=== PATIENT | female | born 1955 | race Caucasian/White ===

== ENCOUNTER → 2016-10-04 | Outpatient (CLI) | payer OTHER ==
[~2016-10-04] MED LIST: ACET-461 PO; ACHD5005 PO; ASP81CT PO; BACL20TA PO; CALC1CAP5 PO; CEFD300C3 PO; CHOL10003 PO; CYCL10TA9 PO; EST.625T PO; LVT.05T PO; MELO-195 PO; MTP25TSR PO; NAPR220C11 PO; PRD20T PO; PRX10T PO
== END ==
LOC: CARD 13:57
PROVIDERS: ATTEND Physician Assistant
DX: I10 Essential (primary) hypertension (principal); R00.2 Palpitations; I49.3 Ventricular premature depolarization; R09.89 Other specified symptoms and signs involving the circulatory and respiratory systems
CPT/HCPCS: 93306

== ENCOUNTER 2017-03-27 10:47 | Outpatient (RCR) | payer OTHER | END 2017-06-25 | disposition home or self-care (01) | LOC: ONC 10:47 | PROVIDERS: ATTEND Internal Medicine Hematology & Oncology | DX: M81.0 Age-related osteoporosis without current pathological fracture (principal); I10 Essential (primary) hypertension; R00.1 Bradycardia, unspecified; F32.9 Major depressive disorder, single episode, unspecified; E07.9 Disorder of thyroid, unspecified; M51.16 Intervertebral disc disorders with radiculopathy, lumbar region; M48.061 Spinal stenosis, lumbar region without neurogenic claudication; Z79.899 Other long term (current) drug therapy | CPT/HCPCS: 96365 ==

== ENCOUNTER 2018-03-20 09:50 | Outpatient (RCR) | payer OTHER ==
[2018-03-20] MEDS ORDERED: ZOLEDRONATE (NON-FORMULARY) 100 ML IV ONE (10:40)
== END 2018-06-18 | disposition home or self-care (01) ==
LOC: ONC 09:50
PROVIDERS: ATTEND Internal Medicine Hematology & Oncology
DX: M81.0 Age-related osteoporosis without current pathological fracture (principal); I10 Essential (primary) hypertension; R00.1 Bradycardia, unspecified; F32.9 Major depressive disorder, single episode, unspecified; E07.9 Disorder of thyroid, unspecified; M51.16 Intervertebral disc disorders with radiculopathy, lumbar region; M48.061 Spinal stenosis, lumbar region without neurogenic claudication; Z79.899 Other long term (current) drug therapy
CPT/HCPCS: 96365

== ENCOUNTER → 2018-03-20 | Outpatient (CLI) | payer OTHER ==
[2018-03-20 11:14] LABS: BUN/CREATININE RATIO 14; CALCIUM 9.5 MG/DL (8.5-10.1); CARBON DIOXIDE 27 MMOL/L (21-32); CHLORIDE 105 MMOL/L (98-107); GFR ESTIMATED > 60; GLUCOSE 77 MG/DL (70-105); POTASSIUM 4.2 MMOL/L (3.6-5.0); SODIUM 140 MMOL/L (135-145)
== END ==
LOC: LAB 10:16
PROVIDERS: ATTEND Obstetrics & Gynecology
DX: M81.0 Age-related osteoporosis without current pathological fracture (principal)
CPT/HCPCS: 36415; 80048

== ENCOUNTER 2018-10-12 15:25 | Inpatient (IN) | payer OTHER ==
[~2018-10-12] VITALS: Ht 157.5 cm; Wt 59.0 kg
--- NOTE | 2018-10-12 15:31 | NUR ---
PT HERE WITH " ". PT ALERT GCS 15. DR SOLOMON PT SAME TIME. PT STARTED TO C/O ABD PAIN THIS AM ASSOCIATED WITH N/V X 1 THEN DRY HEAVES. DENIES DIARRHEA AND C/O CONSTIPATION. PT ALSO C/O CHEST PAIN RADIATING UP CHEST AND DOWN LEFT ARM THAT SHE SAYS IS DUE TO THE DRY HEAVES. ABD PAIN IS WORSE PAIN RATING 2 CURRENTLY. PT DENIES DYSPNEA AND NO ACUTE SIGHNS OF DYSPNEA NOTED. PT RELATES SHE DRINKS ALCOHOL DAILY. LUNGS CTA BILATERALLY. ABD SOFT NONDISTENDED TENDER TO PALPATION ALL QUADS. TELE APPLIED SHOWS SR 64. PATRICIA SOLOMON PT 2239,
--- NOTE | 2018-10-12 15:31 | NUR ---
PT SAYS LAST ALCOHOL WAS LAST NOC.
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
--- NOTE | 2018-10-12 15:39 | ED Abdominal Pain ---
General Stated Complaint: NAUSEA,CHEST PRESSURE Source of Information: Patient Exam Limitations: No Limitations History of Present Illness Date Seen by Provider: Oct 12, 2018 Time Seen by Provider: 15:37 Initial Comments ER per private vehicle from home with reports of pain all across the lower abdomen. This awakened her from sleep this morning. She has had nausea and vomited twice. No bowel changes no dysuria. She also has some discomfort in the middle of her chest that she describes as a burning sensation. She denies shortness of breath. Timing/Duration: 1-2 Days Severity/Quality: Moderate Location: Epigastric, Suprapubic Radiation: No Radiation Activities at Onset: None Associated Symptoms: Nausea/Vomiting Allergies and Home Medications Allergies Coded Allergies: No Known Drug Allergies (Unverified , 03/26/10) Home Medications Acetaminophen 500 Mg Tablet, 500 MG PO Q4H Prescribed by: ADRIENNE NY on 09/24/13 0841 Aspirin 81 Mg Chew, 81 MG PO DAILY, (Reported) Cefdinir 300 Mg Capsule, 1 EACH PO BID Prescribed by: ADRIENNE NY on 09/24/13 08 Levothyroxine Sodium 50 Mcg Tablet, 1 EACH PO DAILY, (Reported) Naproxen Sodium 220 Mg Capsule, 220 MG PO BID Prescribed by: ADRIENNE NY on 09/24/13 08 Paroxetine Hcl 10 Mg Tablet, 2 TAB PO HS Prescribed by: ADRIENNE NY on 09/24/13 0841 Patient Home Medication List Home Medication List Reviewed: Yes Review of Systems Review of Systems Constitutional: see HPI EENTM: No Symptoms Reported Respiratory: No Symptoms Reported Cardiovascular: No Symptoms Reported Gastrointestinal: See HPI, Abdominal Pain, Nausea, Vomiting Genitourinary: No Symptoms Reported Musculoskeletal: no symptoms reported Skin: no symptoms reported Psychiatric/Neurological: No Symptoms Reported Endocrine: No Symptoms Reported Past Srnamza-Avzkpr-Mwarqq Hx Immunizations Up To Date Date of Influenza Vaccine: Jan 07, 2011 Past Medical History Reproductive Disorders: No Female Reproductive Disorders: Denies Sexually Transmitted Disease: No HIV/AIDS: No Hypothyroidsim Adverse Reaction/Blood Tranf: No Family Medical History Family history: Diabetes mellitus 19 FATHER Physical Exam Vital Signs Vital Signs - First Documented 10/12/18 15:31 Temp 97.3 Pulse 68 Resp 16 B/P (MAP) 136/72 (93) Pulse Ox 99 O2 Delivery Room Air Capillary Refill : Height/Weight/BMI Height: 5'3.00" Weight: 145lbs. oz. 65.632891qe; BMI Method: General Appearance: WD/WN, no apparent distress HEENT: PERRL/EOMI, normal ENT inspection, TMs normal Neck: non-tender, full range of motion Respiratory: no respiratory distress, no accessory muscle use Cardiovascular: regular rate, rhythm, no murmur Gastrointestinal: normal bowel sounds, soft, tenderness Extremities: normal range of motion, non-tender Neurologic/Psychiatric: alert, normal mood/affect, oriented x 3 Skin: normal color, warm/dry Progress/Results/Core Measures Results/Orders Lab Results Laboratory Tests Test 10/12/18 16:01 Range/Units White Blood Count 8.5 4.3-11.0 10^3/uL Red Blood Count 4.59 4.35-5.85 10^6/uL Hemoglobin 14.6 11.5-16.0 G/DL Hematocrit 44 35-52 % Mean Corpuscular Volume 96 80-99 FL Mean Corpuscular Hemoglobin 32 25-34 PG Mean Corpuscular Hemoglobin Concent 33 32-36 G/DL Red Cell Distribution Width 12.4 10.0-14.5 % Platelet Count 203 130-400 10^3/uL Mean Platelet Volume 11.0 H 7.4-10.4 FL Neutrophils (%) (Auto) 83 H 42-75 % Lymphocytes (%) (Auto) 11 L 12-44 % Monocytes (%) (Auto) 5 0-12 % Eosinophils (%) (Auto) 0 0-10 % Basophils (%) (Auto) 0 0-10 % Neutrophils # (Auto) 7.1 1.8-7.8 X 10^3 Lymphocytes # (Auto) 0.9 L 1.0-4.0 X 10^3 Monocytes # (Auto) 0.4 0.0-1.0 X 10^3 Eosinophils # (Auto) 0.0 0.0-0.3 10^3/uL Basophils # (Auto) 0.0 0.0-0.1 10^3/uL Prothrombin Time 12.5 12.2-14.7 SEC INR Comment 0.9 0.8-1.4 Activated Partial Thromboplast Time 25 24-35 SEC Sodium Level 142 135-145 MMOL/L Potassium Level 4.2 3.6-5.0 MMOL/L Chloride Level 105 98-107 MMOL/L Carbon Dioxide Level 26 21-32 MMOL/L Anion Gap 11 5-14 MMOL/L Blood Urea Nitrogen 12 7-18 MG/DL Creatinine 0.82 0.60-1.30 MG/DL Estimat Glomerular Filtration Rate > 60 BUN/Creatinine Ratio 15 Glucose Level 119 H 70-105 MG/DL Calcium Level 9.5 8.5-10.1 MG/DL Corrected Calcium 9.3 8.5-10.1 MG/DL Magnesium Level 2.2 1.8-2.4 MG/DL Total Bilirubin 0.5 0.1-1.0 MG/DL Aspartate Amino Transf (AST/SGOT) 27 5-34 U/L Alanine Aminotransferase (ALT/SGPT) 18 0-55 U/L Alkaline Phosphatase 84 40-136 U/L Myoglobin 34.1 10.0-92.0 NG/ML Troponin I < 0.028 <0.028 NG/ML B-Type Natriuretic Peptide 14.2 <100.0 PG/ML Total Protein 7.1 6.4-8.2 GM/DL Albumin 4.2 3.2-4.5 GM/DL Lipase 26 8-78 U/L Serum Alcohol < 10 <10 MG/DL My Orders Orders - ALEXANDRA BERNSTEIN APRN Cbc With Automated Diff (10/12/18 15:32) Magnesium (10/12/18 15:32) Chest 1 View, Ap/Pa Only (10/12/18 15:32) Ekg Tracing (10/12/18 15:32) Cardiac Profile 1 (10/12/18 15:32) Comprehensive Metabolic Panel (10/12/18 15:32) Myoglobin Serum (10/12/18 15:32) Protime With Inr (10/12/18 15:32) Partial Thromboplastin Time (10/12/18 15:32) O2 (10/12/18 15:32) Monitor-Rhythm Ecg Trace Only (10/12/18 15:32) Lipid Panel (10/13/18 06:00) Ed Iv/Invasive Line Start (10/12/18 15:32) Lipase (10/12/18 15:32) BNP (10/12/18 15:32) Ct Abdomen/Pelvis W (10/12/18 15:36) Antacid Suspension (Mylanta Suspension (10/12/18 15:45) Lidocaine 2% Viscous 15 Ml (Xylocaine Vi (10/12/18 15:45) Ondansetron Injection (Zofran Injectio (10/12/18 15:45) Alcohol (10/12/18 16:01) Promethazine Injection (Phenergan Injec (10/12/18 16:30) Iohexol Injection (Omnipaque 350 Mg/Ml 1 (10/12/18 17:00) Contrast Received (Contrast Received) (10/12/18 17:00) Sodium Chloride Flush (Catheter Flush Sy (10/12/18 17:00) Ns (Ivpb) (Sodium Chloride 0.9% Ivpb Bag (10/12/18 17:00) Fentanyl Injection (Sublimaze Injection (10/12/18 18:00) Chest 1 View, Ap/Pa Only (10/12/18 18:24) Ng Tube Insert & Assessment (10/12/18 18:24) Medications Given in ED Current Medications Medications Dose Ordered Sig/Aissatou Route Start Time Stop Time Status Last Admin Dose Admin Al Hydrox/Mg Hydrox/Simethicone 30 ml ONCE ONCE PO 10/12/18 15:45 10/12/18 15:46 DC 10/12/18 16:09 30 ML Fentanyl Citrate 50 mcg ONCE ONCE IVP 10/12/18 18:00 10/12/18 18:01 DC 10/12/18 17:55 50 MCG Iohexol 100 ml ONCE ONCE IV 10/12/18 17:00 10/12/18 17:01 DC 10/12/18 17:18 74 ML Lidocaine HCl 10 ml ONCE ONCE PO 10/12/18 15:45 10/12/18 15:46 DC 10/12/18 16:09 10 ML Ondansetron HCl 8 mg ONCE ONCE IVP 10/12/18 15:45 10/12/18 15:46 DC 10/12/18 16:06 8 MG Promethazine HCl 12.5 mg ONCE ONCE IVP 10/12/18 16:30 10/12/18 16:31 DC 10/12/18 16:31 12.5 MG Sodium Chloride 10 ml NEEDED PRN IV 10/12/18 17:00 10/12/18 17:18 10 ML Sodium Chloride 100 ml ONCE ONCE IV 10/12/18 17:00 10/12/18 17:01 DC 10/12/18 17:18 80 ML Vital Signs/I&O 10/12/18 10/12/18 15:31 17:25 Temp 97.3 98.8 Pulse 68 88 Resp 16 16 B/P (MAP) 136/72 (93) 123/73 (90) Pulse Ox 99 99 O2 Delivery Room Air Room Air Departure Communication (Admissions) Time/Spoke to Admitting Phy: 18:[address] Bailey who is in service education teacher for Dr. Ny. agrees to admit. Time/Spoke to Consulting Phy: 18:[address] Vega, agrees to consult. Would like nasogastric tube inserted 1825-left nostril/nasopharynx anesthetized with Hurricaine spray. 16 Kyrgyz nasogastric tube inserted. X-ray ordered to confirm placement. Impression Primary Impression: Bowel obstruction Qualified Codes: K56.600 - Partial intestinal obstruction, unspecified as to cause Disposition: ADMITTED INPATIENT Condition: Stable Admissions Decision to Admit Reason: Admit from ER (General) Decision to Admit/Date: Oct 12, 2018 Time/Decision to Admit Time: 18:25 Departure-Patient Inst. Referrals: ADRIENNE NY DO (PCP/Family) Primary Care Physician ALEXANDRA BERNSTEIN APRN Oct 12, 2018 15:39
[2018-10-12] MEDS ORDERED: LIDOCAINE 2% VISCOUS 15 ML UDC PO ONE (15:45)
[2018-10-12] MEDS ORDERED: ONDANSETRON 4 MG/2 ML (SDV) Z0FRAN IVP ONE (15:45)
[2018-10-12] MEDS ORDERED: ANTACID SUSP 30 ML UDC (MYLANTA) PO ONE (15:45)
[2018-10-12 16:06] LABS: BASOPHILS % (AUTO) 0 % (0-10); EOSINOPHILS % (AUTO) 0 % (0-10); HEMATOCRIT 44 % (35-52); HEMOGLOBIN 14.6 G/DL (11.5-16.0); LYMPHOCYTES # (AUTO) 0.9 X 10^3 (1.0-4.0); LYMPHOCYTES % (AUTO) 11 % (12-44); MEAN CORPUSCULAR HEMOGLOBIN 32 PG (25-34); MEAN CORPUSCULAR HGB CONC 33 G/DL (32-36); MEAN CORPUSCULAR VOLUME 96 FL (80-99); MONOCYTES # (AUTO) 0.4 X 10^3 (0.0-1.0); MONOCYTES % (AUTO) 5 % (0-12); NEUTROPHILS # (AUTO) 7.1 X 10^3 (1.8-7.8); NEUTROPHILS % (AUTO) 83 % (42-75); PLATELET COUNT 203 10^3/uL (130-400); RED CELL DISTRIBUTION WIDTH 12.4 % (10.0-14.5); WHITE BLOOD COUNT 8.5 10^3/uL (4.3-11.0)
[2018-10-12 16:22] LABS: INR 0.9 (0.8-1.4); PROTHROMBIN TIME PATIENT 12.5 SEC (12.2-14.7)
[2018-10-12] MEDS ORDERED: PROMETHAZINE INJ 25 MG/ML (PHENERGAN) AMP IVP ONE ×2 (16:30→19:15)
[2018-10-12 16:31] LABS: ALANINE AMINOTRANSFERASE 18 U/L (0-55); ALBUMIN 4.2 GM/DL (3.2-4.5); ALKALINE PHOSPHATASE 84 U/L (40-136); BILIRUBIN,TOTAL 0.5 MG/DL (0.1-1.0); BUN/CREATININE RATIO 15; CALCIUM 9.5 MG/DL (8.5-10.1); CARBON DIOXIDE 26 MMOL/L (21-32); CHLORIDE 105 MMOL/L (98-107); CREATININE SERUM 0.82 MG/DL (0.60-1.30); GFR ESTIMATED > 60; GLUCOSE 119 MG/DL (70-105); LIPASE 26 U/L (8-78); MAGNESIUM 2.2 MG/DL (1.8-2.4); POTASSIUM 4.2 MMOL/L (3.6-5.0); SODIUM 142 MMOL/L (135-145); TOTAL PROTEIN 7.1 GM/DL (6.4-8.2)
--- NOTE | 2018-10-12 16:33 | NUR ---
PT WITH N/V X 1 IN ER.
[2018-10-12] MEDS ORDERED: HOLD METFORMIN - RECEIVED CONTRAST 20 ML VIAL IV SCH (17:00)
[2018-10-12] MEDS ORDERED: IOHEXOL 350 MG/ML 100 ML (OMNIPAQUE 350) VIAL IV ONE (17:00)
[2018-10-12] MEDS ORDERED: NS 100 ML (IVPB) BAG IV ONE (17:00)
[2018-10-12] MEDS ORDERED: CATHETER FLUSH 10 ML SYR IV PRN (17:00)
--- NOTE | 2018-10-12 17:14 | Diagnostic Imaging Report ---
INDICATION: Anterior chest wall pain. FINDINGS: Frontal view of the chest demonstrates the lungs to be clear. The heart, mediastinum, pulmonary vascularity, and the visualized bony thorax are normal. IMPRESSION: Normal chest. Dictated by: Dictated on workstation # [id number]
--- NOTE | 2018-10-12 17:20 | NUR ---
PT BACK FROM CT. REMAINS IN THE ROOM, PT REMAINS ALERT GCS 15. PT STILL C/O CHEST AND ABD PAIN AND ABD PAIN WORSE. PAIN RATING 3. PT RELATES LESS NAUSEA BUT IT CONTINUES. PT HAS VOMITED 3 MORE TIMES PT AND SAYS. HUSBAMD SAYS WHITE AND PT SAYS WITH LITLE YELLOW IN IT. DENIES DYSPNEA AND NO ACUTE SIGHNS OF DYSPNEA NOTED. TELE SHOWS SR 86.
[2018-10-12 17:25] VITALS: BP 123/73
[2018-10-12] MEDS ORDERED: fentaNYL INJECTION 100 MCG/2 ML AMP IVP ONE (18:00)
--- NOTE | 2018-10-12 18:11 | Diagnostic Imaging Report ---
INDICATION: Lower abdominal pain with nausea, vomiting, chills and cramping. Previous gastric sleeve. COMPARISON STUDY: There are no pertinent studies. FINDINGS: The lung bases are clear. The gallbladder is absent. Along the surface of the liver adjacent to the falciform ligament there is hypodensity in the liver which is probably a focal area of fatty metamorphosis. Calcifications are present consistent with calcified granulomas. Postoperative changes are present in the stomach without inflammatory changes. The pancreas, adrenal glands and spleen appear normal. Urinary bladder is normal. The stomach is markedly distended with an air-fluid level. Possible outlet obstruction. IMPRESSION: The stomach is distended with an air-fluid level. Findings are consistent with an outlet obstruction. Dictated by: Dictated on workstation # [id number]
--- NOTE | 2018-10-12 18:42 | Diagnostic Imaging Report ---
INDICATION: Nasogastric tube placement. COMPARISON STUDY: Chest from October 12. FINDINGS: Frontal view of the chest demonstrates the lungs to be clear. The heart, mediastinum, pulmonary vascularity, and visualized bony thorax are normal. Nasogastric tube is in the stomach. IMPRESSION: 1. Normal chest. 2. The nasogastric tube is in good position. Dictated by: Dictated on workstation # [id number]
--- NOTE | 2018-10-12 19:10 | NUR ---
PT REMAINS ALERT GCS 15. REMAINS IN THE ROOM. PT DENIES CHEST PAIN BUT STILL C/O ABD PAIN. PT STILL C/O NAUSEA AND ANOTHER NURSE JUST GIVING MORE PHENERGREN NOW. PT HAS NGT LEFT NARAH. JUST SLIGHT BLOOD AND PHLEMB IN SX TUBING ONLY. DENIES DYSPNEA AND NO ACUTE SIGHNS OF DYSPNEA NOTED. BP MACHINE IS 126/68 AUSC HR 88 REG AUSC RESP 16 NORMAL RECHECK TEMP 99.1 P OX R/A IS 98. TELE SHOWS SR 86.
--- NOTE | 2018-10-12 19:26 | NUR ---
I JUST CALLED REPORT TO ADMIT NURSE ARIADNA. SOMEONE WILL TAKE PT TO ADMIT ROOM [facility].
--- NOTE | 2018-10-12 19:34 | NUR ---
I AM TAKING PT TO ADMIT ROOM.
--- NOTE | 2018-10-12 19:45 | NUR ---
LAZ HAGEN admitted to room 431-1, with an admitting diagnosis of gastric bowel obstruction, on 10/12/18 from ER via bed, accompanied by er staff. LAZ HAGEN introduced to surroundings, call light, bed controls, phone, TV, temperature control, lights, meal times, smoking policy, visitor policy, side rail policy, bathrooms and showers. Patient Rights given to patient in the handbook. LAZ HAGEN verbalizes understanding that [facility] is not responsible for the loss or damage to any personal effects or valuables that are kept in the patients possession during their hospitalization.
[2018-10-12 19:49] VITALS: BP 118/74
--- OUTSIDE RECORDS SUMMARY | 2018-10-12 20:08 | XMS REPORT | Continuity of Care Document ---
Author Organization Unknown Address Unknown Allergies Active Description Code Type Severity Reaction Onset Reported/Identified Relationship to Patient Clinical Status Yes No Known Drug Allergies [id number] Drug Allergy Unknown N/A 03/26/2010 Medications There is no data. Problems Date Dx Coded Attending Type Code Diagnosis Diagnosed By 03/26/2010 Ot 850.5 03/26/2010 Ot 923.00 03/26/2010 Ot 924.11 03/26/2010 Ot 959.01 03/26/2010 Ot E000.8 03/26/2010 Ot E849.6 03/26/2010 Ot E880.9 03/26/2010 Ot V06.1 08/29/2010 Ot V16.0 08/29/2010 Ot V76.51 04/13/2011 Ot 244.9 HYPOTHYROIDISM NOS 04/13/2011 Ot 414.01 CORONARY ATHEROSCLEROSIS OF [place] CORON 04/13/2011 Ot 427.69 PREMATURE BEATS NEC [...] DELIRIUM DUE TO CONDITIONS CLASSIFIED EL 09/24/2013 EVITANDALEX AHMADI DOQUELINE S Ot 311 DEPRESSIVE DISORDER [...] Ot 722.10 LUMBAR DISC DISPLACEMENT 11/13/2013 ADRIENNE YN DO Ot V57.1 PHYSICAL THERAPY NEC 02/04/2015 [...] 578.1 BLOOD IN STOOL 10/04/2016 JUDE MICHAEL BRASS MOLDER HELPER Ot 722.52 LUMB/LUMBOSAC DISC DEGEN 10/04/2016 BROOK CARLOS MD Ot 722.52 LUMB/LUMBOSAC DISC DEGEN 10/04/2016 BROOK CARLOS MD Ot 724.6 DISORDERS OF SACRUM 10/04/2016 BROOK CARLOS MD Ot V58.69 OTH MED,LT,CURRENT USE 10/05/2016 SETH FIHSER Ot I10 ESSENTIAL (PRIMARY) HYPERTENSION 10/05/2016 SETH [...] 04/26/2017 JAMES, BOBAN N Ot Z79.899 OTHER JAIL (CURRENT) DRUG THERAPY 05/10/2017 JAMES, BOBAN N [...] 05/10/2017 JAMES, BOBAN N Ot Z79.899 OTHER SAMPLE GRADER (CURRENT) DRUG THERAPY 05/16/2017 JAMES, BOBAN N [...] 05/16/2017 JAMES, BOBAN N Ot Z79.899 OTHER JAIL (CURRENT) DRUG THERAPY 06/25/2017 JAMESADALBERTO N Ot [...] 06/25/2017 JAMES, BOBAN N Ot Z79.899 OTHER SAMPLE GRADER (CURRENT) DRUG THERAPY 07/30/2017 JAMES BOBMANINDER N [...] 07/30/2017 JAMES, ADALBERTO N Ot Z79.899 OTHER SAMPLE GRADER (CURRENT) DRUG THERAPY 03/04/2018 JUDE MICHAEL Ot [...] 06/18/2018 JAMES, BOBAN N Ot Z79.899 OTHER SAMPLE GRADER (CURRENT) DRUG THERAPY 06/19/2018 JAMES, BOBAN N [...] 06/19/2018 JAMES, BOBAN N Ot Z79.899 OTHER SAMPLE GRADER (CURRENT) DRUG THERAPY Procedures There is no [...] Status Pt. Type Provider Facility Loc./Unit Complaint [id number] 06/19/2018 00:10:00 06/19/2018 23:59:59 CLS Preadmit ADALBERTO RAMIREZ Via [facility] ONC [id number] 03/20/2018 09:50:00 06/18/2018 00:01:00 DIS Outpatient ADALBERTO RAMIREZ [facility] ONC [id number] 03/20/2018 10:16:00 03/20/2018 23:59:59 CLS Outpatient SULTANA DUEÑAS MD [facility] LAB [id number] 03/27/2017 10:47:00 06/25/2017 00:01:00 DIS Outpatient ADALBERTO RAMIREZ [facility] ONC [id number] 10/04/2016 13:57:00 10/04/2016 23:59:59 CLS Outpatient SETH FISHER [facility] CARD R00.1 BRADYCARDIA [id number] 12/01/2013 12:35:00 12/01/2013 23:59:59 CLS Outpatient BROOK CARLOS MD [facility] CARD DDD [id number] 10/30/2013 13:08:00 11/13/2013 14:47:00 DIS Outpatient ADRIENNE [place] DO Via [facility] REHAB LUMBAR DISC DISPLACEMENT [id number] 09/21/2013 02:40:00 09/24/2013 11:49:00 DIS Inpatient ADRIENNE [place] DO Via [facility] 4TH MEDICATION SIDE EFFECT;VOLUME DEPLETION [id number] 09/16/2013 14:48:00 09/16/2013 23:59:59 CLS Outpatient JUDE MICHAEL [facility] RAD LBP [id number] 11/07/2011 17:04:00 Document Registration [id number] 06/08/2011 21:10:00 Document Registration [id number] 04/13/2011 05:54:00 Document Registration [id number] 04/12/2011 15:09:00 Document Registration [id number] 04/12/2011 10:09:00 Document Registration [id number] 04/07/2011 08:12:00 Document Registration [id number] 08/30/2010 07:41:00 Document Registration [id number] 08/29/2010 08:16:00 Document Registration [id number] 03/26/2010 12:29:00 Document Registration [id number] 02/17/2010 10:18:00 Document Registration [id number] 02/15/2010 11:25:00 Document Registration [id number] 02/09/2009 08:28:00 Document Registration 1950 03/24/2018 06:17:56 03/24/2018 23:59:59 CLS Outpatient Adrienne Ny
--- NOTE | 2018-10-12 20:20 | NUR ---
Dr. Vega here to see patient and .
[2018-10-12] MEDS ORDERED: ONDANSETRON 4 MG/2 ML (SDV) Z0FRAN IV PRN (20:30)
[2018-10-12] MEDS ORDERED: PROMETHAZINE INJ 25 MG/ML (PHENERGAN) AMP IV PRN (20:30)
[2018-10-12] MEDS: LACTATED RINGERS 1,000 ML IV SCH (20:33)
--- NOTE | 2018-10-12 21:05 | Consultation (Surgery) ---
History of Present Illness History of Present Illness Patient Consulted On(ezequiel/time) 10/12/18 20:58 Time Seen by Provider: 19:41 History of Present Illness Surgery asked to consult regarding abdominal pain and ??Gastric Outlet Obstruction HPI per ED: ER per private vehicle from home with reports of pain all across the lower abdomen. This awakened her from sleep this morning. She has had nausea and vomited twice. No bowel changes no dysuria. She also has some discomfort in the middle of her chest that she describes as a burning sensation. She denies shortness of breath. Timing/Duration: 1-2 Days Severity/Quality: Moderate Location: Epigastric, Suprapubic Radiation: No Radiation Activities at Onset: None Associated Symptoms: Nausea/Vomiting When I spoke to pt on the floor tonight she rated the pain as 8 out of 10, dull constant pain made worse by movements. Pt has never had anything like this before and she and her are wondering if it is due to the 2 pieces of deep dish pizza and sandwich she had. They are worried because she was told to avoid to much bread. Her last surgery was the Gastric Sleeve 6 years ago (intra-abdominal), she did have Panniculectomy becau se she lost over 100lbs. Pt is still nauseous now and has NGT in place. She thinks her belly is distended more than normal. Allergies and Home Medications Allergies Coded Allergies: No Known Drug Allergies (Unverified , 03/26/10) Home Medications Acetaminophen 500 Mg Tablet, 500 MG PO Q4H Prescribed by: ADRIENNE BURGER on 09/24/13 08 Aspirin 81 Mg Chew, 81 MG PO DAILY, (Reported) Cefdinir 300 Mg Capsule, 1 EACH PO BID Prescribed by: ADRIENNE BURGER on 09/24/13 08 Levothyroxine Sodium 50 Mcg Tablet, 1 EACH PO DAILY, (Reported) Naproxen Sodium 220 Mg Capsule, 220 MG PO BID Prescribed by: ADRIENNE BURGER on 09/24/13 08 Paroxetine Hcl 10 Mg Tablet, 2 TAB PO HS Prescribed by: ADRIENNE BURGER on 09/24/13 08 Patient Home Medication List Home Medication List Reviewed: Yes Past Kytovqr-Qawdae-Iufdot Hx Patient Social History Alcohol Use: Regular Use Recreational Drug Use: No Smoking Status: Never a Smoker Recent Foreign Travel: No Contact w/Someone Who Travel: No Recent Infectious Disease Expo: No Immunizations Up To Date Date of Influenza Vaccine: Jan 07, 2011 Seasonal Allergies Seasonal Allergies: Yes Surgeries History of Surgeries: Yes (sleeve gastrectomy) Surgeries: Gallbladder, Hysterectomy Respiratory History of Respiratory Disorde: No Cardiovascular History of Cardiac Disorders: Yes (RAPID HR; HEART CATH - NO INTERVENTIONS) Neurological History of Neurological Disord: No Reproductive System Hx Reproductive Disorders: No Sexually Transmitted Disease: No HIV/AIDS: No Female Reproductive Disorders: Denies Genitourinary History of Genitourinary Disor: No Gastrointestinal History of Gastrointestinal Di: Yes (GASTRIC SLEEVE APPROX 1 YEAR AGO) Musculoskeletal History of Musculoskeletal Dis: No Endocrine History of Endocrine Disorders: Yes Endocrine Disorders: Hypothyroidsim HEENT History of HEENT Disorders: No Loss of Vision: Denies Hearing Impairment: Denies Cancer History of Cancer: No Psychosocial History of Psychiatric Problem: Yes Behavioral Health Disorders: Depression Integumentary History of Skin or Integumenta: No Blood Transfusions History of Blood Disorders: No Adverse Reaction to a Blood Tr: No Family Medical History Significant Family History: CAD Over 55 Years Old (father), Diabetes Family Medial History: Family history: Diabetes mellitus 19 FATHER Review of Systems-General Constitutional: No chills, No diaphoresis; fever, malaise EENTM: No blurred vision, No double vision, No mouth pain, No mouth swelling, No epistaxis Respiratory: No cough, No dyspnea on exertion, No short of breath Cardiovascular: No chest pain, No edema, No palpitations Gastrointestinal: abdominal pain, constipation; No jaundice; nausea, vomiting Genitourinary: No dysuria, No frequency, No hematuria : No Musculoskeletal: joint pain, joint swelling, muscle pain, muscle stiffness Skin: No change in color, No change in hair/nails, No dryness Psychiatric/Neurological: Denies Anxiety; Depressed; Denies Seizure, Denies Tremors Other pt denies any hx of abnormal bleeding or bruising Physical Exam-General Problems Physical Exam Vital Signs Vital Signs - First Documented 10/12/18 15:31 Temp 97.3 Pulse 68 Resp 16 B/P (MAP) 136/72 (93) Pulse Ox 99 O2 Delivery Room Air Capillary Refill : Less Than 3 Seconds General Appearance: WD/WN, mild distress Eyes: Bilateral Eye PERRL, Bilateral Eye EOMI HEENT: pharynx normal; No scleral icterus (R), No scleral icterus (L); other (NGT in place) Neck: non-tender, full range of motion, supple, normal inspection Respiratory: chest non-tender, lungs clear, normal breath sounds, no respiratory distress, no accessory muscle use Cardiovascular: regular rate, rhythm, no murmur Gastrointestinal: abnormal bowel sounds, distended, guarding (voluntary), rebound; No hernia; other (fullness and firmness LUQ and LLQ) Back: no CVA tenderness, no vertebral tenderness Extremities: normal range of motion, non-tender, normal inspection, no pedal edema, no calf tenderness Neurologic/Psychiatric: performance test architect II-XII nml as tested, no motor/sensory deficits, alert, oriented x 3, depressed affect Skin: normal color, warm/dry Lymphatic: no adenopathy (neck, axilla or groin) Data Review Labs Laboratory Tests 10/12/18 16:01: White Blood Count 8.5, Red Blood Count 4.59, Hemoglobin 14.6, Hematocrit 44, Mean Corpuscular Volume 96, Mean Corpuscular Hemoglobin 32, Mean Corpuscular Hemoglobin Concent 33, Red Cell Distribution Width 12.4, Platelet Count 203, Mean Platelet Volume 11.0H, Neutrophils (%) (Auto) 83H, Lymphocytes (%) (Auto) 11L, Monocytes (%) (Auto) 5, Eosinophils (%) (Auto) 0, Basophils (%) (Auto) 0, Neutrophils # (Auto) 7.1, Lymphocytes # (Auto) 0.9L, Monocytes # (Auto) 0.4, Eosinophils # (Auto) 0.0, Basophils # (Auto) 0.0, Prothrombin Time 12.5, INR Comment 0.9, Activated Partial Thromboplast Time 25, Sodium Level 142, Potassium Level 4.2, Chloride Level 105, Carbon Dioxide Level 26, Anion Gap 11, Blood Urea Nitrogen 12, Creatinine 0.82, Estimat Glomerular Filtration Rate > 60, BUN/Creatinine Ratio 15, Glucose Level 119H, Calcium Level 9.5, Corrected Calcium 9.3, Magnesium Level 2.2, Total Bilirubin 0.5, Aspartate Amino Transf (AST/SGOT) 27, Alanine Aminotransferase (ALT/SGPT) 18, Alkaline Phosphatase 84, Myoglobin 34.1, Troponin I < 0.028, B-Type Natriuretic Peptide 14.2, Total Protein 7.1, Albumin 4.2, Lipase 26, Serum Alcohol < 10 Assessment/Plan Assessment/Plan Assessment/Plan Left sided Abdominal pain Small Bowel Obstruction - possible complete Hypothyroidism I reviewed the CT films myself and do not believe this is a Gastric Outlet Obstruction; I called the radiologist and went over films, he agreed looking at it again that it is a segment of small bowel. It may be an internal hernia; looks almost like a closed loop obstruction. My concern is that the intestine measured at least 11.7 cm at its widest point, anything over 10cm runs the risk of spontaneous perforation. In addition with the small bowel that distended it is almost certain that the blood supply is being compromised if not completely cut off. I had a long discussion with the pt and her ; going over options of doing surgery tonight, waiting to do surgery tomorrow or not doing surgery at all. I think the safest thing is to do it tonight; they both agreed, in fact is very concerned about peritonitis and rupture and does not want to wait. I went over risks and complications; not limited to pain, bleeding, infection, scar, damage to bowel and need for further procedure. The plan is to do Exploratory laparotomy with posssible small bowel resection. All questions answered to their satisfaction. MAYTE LOPEZ DO Oct 12, 2018 21:05
[2018-10-12] MEDS ORDERED: SEVOFLURANE (ULTANE) 15 ML INHAL SOLN ONE (21:26)
[2018-10-12] MEDS ORDERED: ROCURONIUM 10 MG/ML 5 ML SYRINGE IV ONE (21:26)
[2018-10-12] MEDS ORDERED: SUCCINYLCHOLINE INJ 100 MG/5 ML SYR ONE (21:26)
[2018-10-12] MEDS ORDERED: ONDANSETRON 4 MG/2 ML (SDV) Z0FRAN ONE (21:26)
[2018-10-12] MEDS ORDERED: MIDAZOLAM 2 MG/2 ML (VERSED) VIAL ONE (21:26)
[2018-10-12] MEDS ORDERED: fentaNYL INJECTION 100 MCG/2 ML AMP ONE (21:26)
[2018-10-12] MEDS ORDERED: proPOfol 200 MG/20 ML (DIPRIVAN) VIAL IV ONE (21:26)
[2018-10-12] MEDS ORDERED: DEXAMETHASONE 10 MG/ML (DECADRON) 1 ML VIAL ONE (21:26)
[2018-10-12] MEDS ORDERED: metroNIDAZOLE 500MG/100ML IVPB 100 ML ONE (21:37)
[2018-10-12] MEDS ORDERED: ceFAZolin 2 GM/50 ML NS 50 ML IV ONE (21:45)
--- NOTE | 2018-10-12 21:49 | NUR ---
to OR via bed accompanied by surgical processor's x 2
[2018-10-12] MEDS ORDERED: ceFAZolin 2 GM/50 ML NS 50 ML ONE (21:53)
[2018-10-12] MEDS ORDERED: HYDROmorphone 2 MG/ML VIAL (DILAUDID) ONE ×2 (21:56→22:18)
[2018-10-12] MEDS ORDERED: morphine INJ 10 MG/ML 1ML (SYR OR VIAL) ONE (21:56)
[2018-10-12] MEDS ORDERED: MEPERIDINE (DEMEROL) INJ 50 MG/ML ONE (21:56)
[2018-10-12] MEDS: metroNIDAZOLE 500MG/100ML IVPB 100 ML IV SCH (22:10)
[2018-10-12] MEDS ORDERED: PHENYLEPHRINE 100 MCG/ML 10 ML (ANESTHESIA) SYR ONE (22:12)
[2018-10-12] MEDS ORDERED: ROPIVACAINE 5MG/ML 30ML VIAL ONE (22:15)
[2018-10-12] MEDS ORDERED: NEOSTIGMINE 3 MG/3 ML VIAL ONE (22:23)
[2018-10-12] MEDS ORDERED: GLYCOPYRROLATE 0.2 MG/ML (ROBINUL) 2 ML VIAL ONE (22:23)
--- NOTE | 2018-10-12 23:06 | Progress Note-Post Operative ---
Post-Operative Progess Note Surgeon (s)/Construction Job Titles (s) Surgeon MAYTE LOPEZ DO Construction Job Titles: none Pre-Operative Diagnosis Small bowel Obstruction Post-Operative Diagnosis Cecal Volvulus Ischemic bowel Procedure & Operative Findings Date of Procedure 10/12/18 Procedure Performed/Findings Right Hemicolectomy Anesthesia Type GET Estimated Blood Loss Estimated blood loss (mL): less than 20ml Specimens/Packing Specimens Removed right colon including cecum,portion of ascending colon and appendix MAYTE LOPEZ DO Oct 12, 2018 23:06
[2018-10-12 23:23] VITALS: BP 120/77
[2018-10-12 23:30] VITALS: BP 104/45
[2018-10-12] MEDS ORDERED: ONDANSETRON 4 MG/2 ML (SDV) Z0FRAN IVP PRN (23:30)
[2018-10-12] MEDS ORDERED: HYDROmorphone 2 MG/ML VIAL (DILAUDID) IV ONE (23:30)
[2018-10-12 23:40] VITALS: BP 112/64
--- NOTE | 2018-10-12 23:40 | Anesthesia-Peripheral Nerve Bl ---
Procedure Start/Stop Time Date of Procedure: Oct 12, 2018 Start Time: 23:00 Referring Physician: Gary Preprocedural Diagnosis: Bowel Obstruction/Volvulus Brief History Block consent obtained pre operative. Block requested by surgeon for post op pain control. U/S guided B/L TAP block completed under sterile technique. Muscle layers visualized easily. Good hydrodissection with local. 20 cc Ropivacaine 0.25cc injected easily B/L. Negative aspiration or heme. VSS in PACU without complaints of pain. ASA 2E Stop Time: 23:05 Postprocedural Diagnosis: Bowel Obstruction/Volvulus Peripheral Nerve Block Peripheral Nerve Blockade Risk/Benefits/Alternatives discussed, including IV injection leading to complications or seizures, nerve irritation or damage, pneumothorax, total spinal anesthesia, injection, and/or bleeding. Specifically requested for management of pain by: Patient Condition Vital Signs Vital Signs Date Time Temp Pulse Resp B/P (MAP) Pulse Ox O2 Delivery O2 Flow Rate FiO2 10/12/18 19:49 98.0 71 18 118/74 (89) 100 Room Air Narrative Injection was made incrementally with constant monitoring. Events Patient Conditon Post Peripheral Nerve Block Post Peripheral Nerve Block Vital Signs: Blood Pressure: Systolic Diastolic Heart Rate Blood Pressure Systolic: 118 Blood Pressure Diastolic: 74 Pulse Rate (adult): 71 DIANA MCGEE CRNA Oct 12, 2018 23:40
[2018-10-12 23:50] VITALS: BP 102/64
[2018-10-13] VITALS (8 sets, daily range): BP systolic 88–117; BP diastolic 51–70
--- NOTE | 2018-10-13 00:20 | NUR ---
To room 431 via bed from [facility] accompanied by Nut Steamer (Sandra Vance RN) and SORAYA Craven. Awake and alert. O2 at 2L NC. Midline incision dressing d/i. at bedside. Will continue to monitor.
[2018-10-13] MEDS: fentaNYL INJECTION 100 MCG/2 ML AMP IV PRN ×2 (01:20→16:30)
[2018-10-13] MEDS ORDERED: PARO-49 PO (01:30)
[2018-10-13] MEDS ORDERED: LEVO50TA6 PO (01:32)
[2018-10-13] MEDS ORDERED: DOCU-143 PO (01:54)
[2018-10-13] MEDS ORDERED: VIT1TABL26 PO (01:54)
[2018-10-13] MEDS ORDERED: MULT1CAP54 PO (02:08)
--- NOTE | 2018-10-13 02:25 | OPERATIVE REPORT ---
DATE OF SERVICE: 10/12/2018 PREOPERATIVE DIAGNOSIS: Small bowel obstruction. POSTOPERATIVE DIAGNOSES: 1. Cecal volvulus. 2. Ischemic bowel. PROCEDURE: Right hemicolectomy. SURGEON: Andrea Vega DO. ORCHARDIST: None. ANESTHESIA: General endotracheal tube. SPECIMEN: Cecum, portion of ascending colon and portion of terminal ileum as well as appendix. BLOOD LOSS: Less than 20 mL. FLUIDS: Per anesthesia. POSTOPERATIVE CONDITION: Stable. INDICATION FOR PROCEDURE: The patient is a 62-year-old female, who had some abdominal pain and distention started today associated with nausea, vomiting and had a CAT scan, which showed what I thought was small bowel obstruction. Radiologist initially read as gastric outlet obstruction, but then changed his diagnoses after I talked to him. FINDINGS: The patient actually had a cecal volvulus with ischemic bowel. PROCEDURE NOTE: After informed consent was obtained, the patient was brought to the operating room and placed on the table in supine position, sterilely prepped and draped in normal fashion. A midline incision was made with a #10 blade, carried down through the skin into the subcutaneous tissue, then deepened down to subcutaneous tissue with Bovie electrocautery down to the fascia. Fascia incised with Bovie electrocautery, then bluntly entered the abdomen and then increased the incision with Bovie electrocautery holding my finger under the fascia to protect the bowel going superiorly and inferiorly. I made about a 3 or 4 inch incision, but I could not get into the abdomen and had to make it another 2 or 3 inches longer, went superiorly with the Bovie electrocautery along the skin and then the fascia. Once this was opened, then could see omentum stuck in the left side of the abdomen, moved this, that was also stuck on the umbilicus, cut this off with Bovie electrocautery and then able to move this out of the way and saw ischemic bowel. Able to grasp this ischemic bowel and pulled it through the midline and out, once delivered up, I realized it was cecal, so she had a cecal volvulus with ischemic bowel. Went above the cecum and the ascending colon, found an area of good colon. I made a small defect in the mesentery with a Bovie electrocautery and then used a ZOLTAN 55 across the colon, clamped and then held for 30 seconds, then fired in thereby transecting it and then went just above the terminal ileum. Again, made a defect in the mesentery with the Bovie electrocautery and then used another ZOLTAN 55 reload and clamped, held for 30 seconds and then fired thereby transecting and then using LigaSure coming across the mesentery between the small intestine and the large intestine in a stepwise fashion clamping, coagulating and transecting and in this fashion completely removing this part. Then placed 2 blue towels, tried to milk any fecal material in the bowel out and put a bowel clamp on the large intestine and then grasped the small intestine. Cut off a corner of the small intestine and then made an incision over that with scissors and then made an incision right along the tinea with a Bovie electrocautery. A hole went into the large intestine, looked this was either ascending or transverse colon and then placed a ZOLTAN 55 on either side, clamped it together and then held for 30 seconds and then fired creating the [id number] functional end-to-end anastomosis. Then, I used a TA 60 across the enterocolotomy to close this, clamped and held for 30 seconds and fired and held for 20 seconds and then cut this distal portion off and passed this off the table. There was a little bit of bleeding from the edges, this was controlled with 3-0 Vicryl pop-offs, also used 3-0 Vicryl pop-off of the crotch of the anastomosis to hold it together and then closed the mesenteric defect with a 3-0 Vicryl running suture. Then dropped all this back into the abdomen and copiously irrigated with 2 or 3 liters of warm normal saline, suctioned this out. There was no bleeding. She did have a pretty floppy transverse colon, but able to push this back in and then elected to close the incision. Closed the midline incision with a #1 double stranded PDS suture running from the superior portion to inferior portion tying to itself. Irrigated the midline incision and then closed the skin with ruthie. The area was cleaned and dried, dressing placed and the patient then transferred to recovery room in stable condition. Sponge, instrument and needle count correct at the end of the case. Job ID: [id number] DocumentID: [id number] Dictated Date: 10/12/2018 23:24:59 Teacher Specialist Date: 10/13/2018 01:20:19 Dictated By: ANDREA VEGA DO
[2018-10-13] MEDS: LACTATED RINGERS 1,000 ML IV SCH ×4 (03:15→20:03)
[2018-10-13] MEDS ORDERED: NS (IVPB) 50 ML ONE (05:21)
[2018-10-13] MEDS ORDERED: ceFAZolin INJECTION 2,000 MG ONE (05:21)
[2018-10-13 05:47] LABS: BASOPHILS % (AUTO) 0 % (0-10); EOSINOPHILS % (AUTO) 0 % (0-10); HEMATOCRIT 41 % (35-52); HEMOGLOBIN 13.4 G/DL (11.5-16.0); LYMPHOCYTES # (AUTO) 0.6 X 10^3 (1.0-4.0); LYMPHOCYTES % (AUTO) 4 % (12-44); MEAN CORPUSCULAR HEMOGLOBIN 32 PG (25-34); MEAN CORPUSCULAR HGB CONC 33 G/DL (32-36); MEAN CORPUSCULAR VOLUME 97 FL (80-99); MEAN PLATELET VOLUME 10.9 FL (7.4-10.4); MONOCYTES # (AUTO) 0.6 X 10^3 (0.0-1.0); MONOCYTES % (AUTO) 5 % (0-12); NEUTROPHILS # (AUTO) 11.5 X 10^3 (1.8-7.8); NEUTROPHILS % (AUTO) 91 % (42-75); PLATELET COUNT 174 10^3/uL (130-400); RED CELL DISTRIBUTION WIDTH 12.4 % (10.0-14.5); WHITE BLOOD COUNT 12.7 10^3/uL (4.3-11.0)
[2018-10-13 06:09] LABS: ALANINE AMINOTRANSFERASE 17 U/L (0-55); ALBUMIN 3.7 GM/DL (3.2-4.5); ALKALINE PHOSPHATASE 72 U/L (40-136); BILIRUBIN,TOTAL 0.4 MG/DL (0.1-1.0); BUN/CREATININE RATIO 13; CALCIUM 8.6 MG/DL (8.5-10.1); CARBON DIOXIDE 25 MMOL/L (21-32); CHLORIDE 107 MMOL/L (98-107); CHOLESTEROL 167 MG/DL (< 200); CREATININE SERUM 0.76 MG/DL (0.60-1.30); GFR ESTIMATED > 60; GLUCOSE 149 MG/DL (70-105); HDL CHOLESTEROL 92 MG/DL (40-60); POTASSIUM 4.4 MMOL/L (3.6-5.0); SODIUM 141 MMOL/L (135-145); TOTAL PROTEIN 6.1 GM/DL (6.4-8.2); TRIGLYCERIDES 38 MG/DL (<150); VLDL CHOLESTEROL 8 MG/DL (5-40)
[2018-10-13] MEDS: ceFAZolin 2 GM/50 ML NS 50 ML IV SCH ×2 (06:16→14:30)
[2018-10-13 07:20] LABS: BAND NEUTROPHILS 13 %; LYMPHOCYTES % (MANUAL) 3 %; MONOCYTES % (MANUAL) 4 %; NEUTROPHILS % (MANUAL) 80 %; RBC MORPH NORMAL
[2018-10-13] MEDS: PANTOPRAZOLE 40 MG (PROTONIX) VIAL IV SCH (08:04)
--- NOTE | 2018-10-13 08:32 | Anesthesia-General Post-Op ---
General Patient Condition Mental Status/LOC: Same as Preop Cardiovascular: Satisfactory Nausea/Vomiting: Absent Respiratory: Satisfactory Pain: Controlled Complications: Absent Post Op Complications Complications None Follow Up Care/Instructions Patient Instructions None needed. Anesthesia/Patient Condition Patient Condition Patient is doing well, no complaints, stable vital signs, no apparent adverse anesthesia problems. No complications reported per nursing. D/C home per [facility] Criteria: Yes DIANA MCGEE CRNA Oct 13, 2018 08:32
--- NOTE | 2018-10-13 13:34 | History & Physical-Hospitalist ---
History of Present Illness HPI/Chief Complaint Chief complaint: Bowel obstruction requiring immediate surgery by Dr. Vega status post right hemicolectomy due to ischemic bowel POD # 1 History of present illness: This is a 62-year-old white female clinic patient of Dr. Ny with a past medical history of gastric sleeve procedure 6 years ago and resulted in 100 pound weight loss since that time who presented to the ER with complaints of chest pain CT scan showed small bowel obstruction gastric outlet obstruction and upon a further assessment by Dr. Vega and his surgical expertise he felt she needed immediate surgery which revealed ischemic bowel resulted in right hemicolectomy and currently she is doing amazingly well. She denies any nausea or any abdominal pain currently. Source: patient, RN/MD Exam Limitations: no limitations Date Seen 10/13/18 Time Seen by a Provider: 12:45 Attending Physician Laine Ny DO PCP Laine Ny DO Referring Physician Date of Admission Oct 12, 2018 at 18:30 Home Medications & Allergies Home Medications Reviewed patient Home Medication Reconciliation performed by pharmacy medication reconciliations warehousing technician and/or nursing. Patients Allergies have been reviewed. Allergies Allergies Coded Allergies No Known Drug Allergies (Adtfroqslz09/18/10) Past Szmxwhq-Qwyesm-Nuygip Hx Past Med/Social Hx: Reviewed Nursing Past Med/Soc Hx, Reviewed and Corrections made Patient Social History Marrital Status: Employed/Student: retired Alcohol Use: Regular Use Recreational Drug Use: No Smoking Status: Never a Smoker Recent Foreign Travel: No Contact w/other who traveled: No Recent Infectious Disease Expo: No Immunizations Up To Date Date of Influenza Vaccine: Jan 07, 2011 Seasonal Allergies Seasonal Allergies: Yes Past Medical History Surgeries: Abdominal (astric sleeve 6 yrs ago), Gallbladder, Hysterectomy Reproductive: No Sexually Transmitted Disease: No HIV/AIDS: No Female Reproductive Disorders: Denies Endocrine: Hypothyroidsim Loss of Vision: Denies Hearing Impairment: Denies Psychosocial: Depression History of Blood Disorders: No Adverse Reaction to Blood Rivera: No Family History Bowel disorder 19 MOTHER FH: breast cancer 19 MOTHER FHx: congestive heart failure 19 FATHER Family history: Diabetes mellitus 19 FATHER Hypertension 19 FATHER CAD Over 55 Years Old (father), Diabetes Review of Systems Constitutional: see HPI, weakness EENTM: no symptoms reported Respiratory: no symptoms reported Cardiovascular: no symptoms reported Gastrointestinal: abdominal pain (LUQ) Genitourinary: no symptoms reported Musculoskeletal: no symptoms reported Skin: no symptoms reported Psychiatric/Neurological: No Symptoms Reported All Other Systems Reviewed Negative Unless Noted: Yes Physical Exam Physical Exam Vital Signs Vital Signs - First Documented 10/12/18 15:31 Temp 97.3 Pulse 68 Resp 16 B/P (MAP) 136/72 (93) Pulse Ox 99 O2 Delivery Room Air Capillary Refill : Less Than 3 SecondsLess Than 3 Seconds Height, Weight, BMI Height: 5'2.00" Weight: 130lbs. 0.0oz. [id number]; 23.8 BMI Method:Stated General Appearance: No Apparent Distress, WD/WN, Chronically ill Eyes: Right Eye Normal Inspection, Right Eye PERRL HEENT: PERRL/EOMI, Normal ENT Inspection, Pharynx Normal, Moist Mucous Membranes Neck: Full Range of Motion, Normal Inspection, Non Tender Respiratory: Chest Non Tender, Lungs Clear, Normal Breath Sounds, No Accessory Muscle Use, No Respiratory Distress Cardiovascular: Regular Rate, Rhythm, No Edema, No Gallop, No JVD, No Murmur, Normal Peripheral Pulses Gastrointestinal: Normal Bowel Sounds, No Organomegaly, No Pulsatile Mass, Abnormal Bowel Sounds Back: Normal Inspection, No CVA Tenderness, No Vertebral Tenderness Extremity: Normal Capillary Refill, Normal Inspection, Normal Range of Motion, Non Tender, No Calf Tenderness, No Pedal Edema Neurologic/Psychiatric: Alert, Oriented x3, No Motor/Sensory Deficits, Normal Mood/Affect Skin: Normal Color, Warm/Dry Lymphatic: No Adenopathy Results Results/Procedures Labs Laboratory Tests 10/12/18 16:01 10/13/18 05:30 Patient resulted labs reviewed. Assessment/Plan Admission Diagnosis Assessment: Acute ischemic bowel requiring right hemicolectomy immediate surgery per Dr Vega POD # 1 Hypothyroidism Gastric sleeve 6 yrs ago Plan: Post op ileus management Monitor N/V and pain Appreciate Dr Vega's surgical expertise Admission Status: Inpatient Order (span 2 midnights) Reason for Inpatient Admission: Emergent surgery for ischemic bowel and subsequenct resection will require 4 days Diagnosis/Problems Diagnosis/Problems (1) S/P right hemicolectomy Status: Acute (2) Acute diffuse ischemia of large intestine Status: Acute (3) History of weight loss surgery Status: Chronic (4) Hypothyroidism Status: Chronic Qualifiers: Hypothyroidism type: acquired Qualified Codes: E03.9 - Hypothyroidism, unspecified (5) Postoperative ileus Status: Acute Clinical Quality Measures DVT/VTE Risk/Contraindication: Risk Factor Score Per Nursin RFS Level Per Nursing on Admit: 4+=Very High MELIA GUTIERREZ DO Oct 13, 2018 13:34
--- NOTE | 2018-10-13 14:34 | Progress Note ---
Subjective Time Seen by a Provider: 13:53 Subjective/Events-last exam Pt seen and examined, resting comfortably in bed. States minimal pain and is tolerating clears. Review of Systems General: No Chills, No Night Sweats Pulmonary: No Dyspnea, No Cough Gastrointestinal: No: Nausea, Vomiting Objective Exam Vital Signs Date Time Temp Pulse Resp B/P (MAP) Pulse Ox O2 Delivery O2 Flow Rate FiO2 10/13/18 12:00 98.8 80 18 115/70 (85) 98 Room Air 10/13/18 08:00 98.0 83 18 107/69 (82) 100 Nasal Cannula 2.00 10/13/18 08:00 Nasal Cannula 2.00 10/13/18 04:00 98.4 90 18 110/55 (73) 99 Nasal Cannula 2.00 10/13/18 00:20 Nasal Cannula 2 10/13/18 00:20 98.2 16 99 Nasal Cannula 2 10/13/18 00:20 99 Nasal Cannula 2.00 10/13/18 00:10 14 99 Nasal Cannula 2 10/13/18 00:10 Nasal Cannula 2 10/13/18 00:00 Nasal Cannula 2 10/13/18 00:00 16 99 Nasal Cannula 2 10/13/18 00:00 98.2 93 18 107/51 (69) 100 Nasal Cannula 2.00 10/12/18 23:50 18 100 OxyMask 5 10/12/18 23:45 OxyMask 5 10/12/18 23:40 16 100 OxyMask 5 10/12/18 23:30 14 100 OxyMask 10 10/12/18 23:30 OxyMask 10 10/12/18 23:23 OxyMask 10 10/12/18 23:23 98.9 16 100 OxyMask 10 10/12/18 19:49 98.0 71 18 118/74 (89) 100 Room Air 10/12/18 19:49 98.0 71 18 118/74 100 Room Air 10/12/18 19:45 100 Room Air 10/12/18 19:27 99.1 88 16 122/79 (93) 98 Room Air 10/12/18 17:25 98.8 88 16 123/73 (90) 99 Room Air 10/12/18 15:31 97.3 68 16 136/72 (93) 99 Room Air I & O 10/13/18 07:00 Intake Total 1200 ml Output Total 495 ml Balance 705 ml Capillary Refill : Less Than 3 SecondsLess Than 3 Seconds General Appearance: No Apparent Distress, Thin Respiratory: Chest Non Tender, Lungs Clear, No Accessory Muscle Use Cardiovascular: Regular Rate, Rhythm, No Murmur Gastrointestinal: soft; No distended; other (incision is c/d/i) Results Lab Laboratory Tests 10/12/18 16:01: White Blood Count 8.5, Red Blood Count 4.59, Hemoglobin 14.6, Hematocrit 44, Mean Corpuscular Volume 96, Mean Corpuscular Hemoglobin 32, Mean Corpuscular Hemoglobin Concent 33, Red Cell Distribution Width 12.4, Platelet Count 203, Mean Platelet Volume 11.0H, Neutrophils (%) (Auto) 83H, Lymphocytes (%) (Auto) 11L, Monocytes (%) (Auto) 5, Eosinophils (%) (Auto) 0, Basophils (%) (Auto) 0, Neutrophils # (Auto) 7.1, Lymphocytes # (Auto) 0.9L, Monocytes # (Auto) 0.4, Eosinophils # (Auto) 0.0, Basophils # (Auto) 0.0, Prothrombin Time 12.5, INR Comment 0.9, Activated Partial Thromboplast Time 25, Sodium Level 142, Potassium Level 4.2, Chloride Level 105, Carbon Dioxide Level 26, Anion Gap 11, Blood Urea Nitrogen 12, Creatinine 0.82, Estimat Glomerular Filtration Rate > 60, BUN/Creatinine Ratio 15, Glucose Level 119H, Calcium Level 9.5, Corrected Calcium 9.3, Magnesium Level 2.2, Total Bilirubin 0.5, Aspartate Amino Transf (AST/SGOT) 27, Alanine Aminotransferase (ALT/SGPT) 18, Alkaline Phosphatase 84, Myoglobin 34.1, Troponin I < 0.028, B-Type Natriuretic Peptide 14.2, Total Protein 7.1, Albumin 4.2, Lipase 26, Serum Alcohol < 10 10/13/18 05:30: White Blood Count 12.7H, Red Blood Count 4.20L, Hemoglobin 13.4, Hematocrit 41, Mean Corpuscular Volume 97, Mean Corpuscular Hemoglobin 32, Mean Corpuscular Hemoglobin Concent 33, Red Cell Distribution Width 12.4, Platelet Count 174, Mean Platelet Volume 10.9H, Neutrophils (%) (Auto) 91H, Lymphocytes (%) (Auto) 4L, Monocytes (%) (Auto) 5, Eosinophils (%) (Auto) 0, Basophils (%) (Auto) 0, Neutrophils # (Auto) 11.5H, Lymphocytes # (Auto) 0.6L, Monocytes # (Auto) 0.6, Eosinophils # (Auto) 0.0, Basophils # (Auto) 0.0, Sodium Level 141, Potassium Level 4.4, Chloride Level 107, Carbon Dioxide Level 25, Anion Gap 9, Blood Urea Nitrogen 10, Creatinine 0.76, Estimat Glomerular Filtration Rate > 60, BUN/Creatinine Ratio 13, Glucose Level 149H, Calcium Level 8.6, Corrected Calcium 8.8, Total Bilirubin 0.4, Aspartate Amino Transf (AST/SGOT) 27, Alanine Aminotransferase (ALT/SGPT) 17, Alkaline Phosphatase 72, Total Protein 6.1L, Albumin 3.7, Neutrophils % (Manual) 80, Lymphocytes % (Manual) 3, Monocytes % (Manual) 4, Band Neutrophils 13, Blood Morphology Comment NORMAL, Triglycerides Level 38, Cholesterol Level 167, LDL Cholesterol Direct 61, VLDL Cholesterol 8, HDL Cholesterol 92H Assessment/Plan Assessment/Plan Assessment/Plan S/P R Hemicolectomy for Cecal Volvulus Plan is pain control, decrease IV fluids, encourage ambulation and IS use. Clinical Quality Measures DVT/VTE Risk/Contraindication: Risk Factor Score Per Nursin RFS Level Per Nursing on Admit: 4+=Very High MAYTE LOPEZ DO Oct 13, 2018 14:34
[2018-10-13] MEDS: metroNIDAZOLE 500MG/100ML IVPB 100 ML IV SCH (20:04)
[2018-10-14] VITALS: BP 122/58
[2018-10-14] MEDS: fentaNYL INJECTION 100 MCG/2 ML AMP IV PRN ×2 (00:55→14:12)
[2018-10-14] MEDS: LACTATED RINGERS 1,000 ML IV SCH ×3 (03:35→16:37)
[2018-10-14 04:00] VITALS: BP 116/56
[2018-10-14 05:58] LABS: BASOPHILS % (AUTO) 0 % (0-10); EOSINOPHILS % (AUTO) 0 % (0-10); HEMATOCRIT 36 % (35-52); HEMOGLOBIN 11.7 G/DL (11.5-16.0); LYMPHOCYTES # (AUTO) 1.9 X 10^3 (1.0-4.0); LYMPHOCYTES % (AUTO) 17 % (12-44); MEAN CORPUSCULAR HEMOGLOBIN 32 PG (25-34); MEAN CORPUSCULAR HGB CONC 32 G/DL (32-36); MEAN CORPUSCULAR VOLUME 99 FL (80-99); MEAN PLATELET VOLUME 10.8 FL (7.4-10.4); MONOCYTES # (AUTO) 0.9 X 10^3 (0.0-1.0); MONOCYTES % (AUTO) 8 % (0-12); NEUTROPHILS % (AUTO) 74 % (42-75); PLATELET COUNT 162 10^3/uL (130-400); RED CELL DISTRIBUTION WIDTH 12.6 % (10.0-14.5); WHITE BLOOD COUNT 10.8 10^3/uL (4.3-11.0)
[2018-10-14 06:21] LABS: ALANINE AMINOTRANSFERASE 11 U/L (0-55); ALKALINE PHOSPHATASE 59 U/L (40-136); BILIRUBIN,TOTAL 0.4 MG/DL (0.1-1.0); BUN/CREATININE RATIO 8; CALCIUM 8.2 MG/DL (8.5-10.1); CARBON DIOXIDE 27 MMOL/L (21-32); CHLORIDE 106 MMOL/L (98-107); CREATININE SERUM 0.71 MG/DL (0.60-1.30); GFR ESTIMATED > 60; GLUCOSE 80 MG/DL (70-105); POTASSIUM 3.8 MMOL/L (3.6-5.0); SODIUM 141 MMOL/L (135-145); TOTAL PROTEIN 5.1 GM/DL (6.4-8.2)
[2018-10-14 08:00] VITALS: BP 140/63
[2018-10-14] MEDS: metroNIDAZOLE 500MG/100ML IVPB 100 ML IV SCH (08:24)
[2018-10-14] MEDS: PANTOPRAZOLE 40 MG (PROTONIX) VIAL IV SCH (08:24)
[2018-10-14 12:00] VITALS: BP 125/68
--- NOTE | 2018-10-14 14:05 | Progress Note ---
Subjective Time Seen by a Provider: 13:02 Subjective/Events-last exam Pt seen and examined, she had just walked in the [place]. Pain controlled, passing flatus but no BM yet. Main complaint is of "feeling run down". Review of Systems General: No Chills, No Night Sweats Pulmonary: No Dyspnea, No Cough Cardiovascular: No: Chest Pain, Palpitations Gastrointestinal: No: Nausea, Vomiting Objective Exam Vital Signs Date Time Temp Pulse Resp B/P (MAP) Pulse Ox O2 Delivery O2 Flow Rate FiO2 10/14/18 08:00 97 Room Air 2.00 10/14/18 08:00 99.6 66 18 140/63 (88) 97 Room Air 10/14/18 04:00 99.2 91 20 116/56 (76) 97 Room Air 10/14/18 00:00 98.2 78 20 122/58 (79) 97 Room Air 10/13/18 20:10 Room Air 10/13/18 20:06 98.0 71 18 117/70 (86) 99 Room Air 10/13/18 16:58 98.8 73 18 103/65 (78) 95 Room Air 10/13/18 16:07 Room Air I & O 10/14/18 07:00 Intake Total 2610 ml Output Total 1850 ml Balance 760 ml Capillary Refill : Less Than 3 SecondsLess Than 3 Seconds General Appearance: No Apparent Distress, WD/WN HEENT: Moist Mucous Membranes Respiratory: Lungs Clear, No Accessory Muscle Use Cardiovascular: Regular Rate, Rhythm, No Murmur Gastrointestinal: soft; No distended; other (incision is c/d/i) Extremity: No Calf Tenderness Results Lab Laboratory Tests 10/14/18 05:30: White Blood Count 10.8, Red Blood Count 3.68L, Hemoglobin 11.7, Hematocrit 36, Mean Corpuscular Volume 99, Mean Corpuscular Hemoglobin 32, Mean Corpuscular Hemoglobin Concent 32, Red Cell Distribution Width 12.6, Platelet Count 162, Mean Platelet Volume 10.8H, Neutrophils (%) (Auto) 74, Lymphocytes (%) (Auto) 17, Monocytes (%) (Auto) 8, Eosinophils (%) (Auto) 0, Basophils (%) (Auto) 0, Neutrophils # (Auto) 8.0H, Lymphocytes # (Auto) 1.9, Monocytes # (Auto) 0.9, Eosinophils # (Auto) 0.0, Basophils # (Auto) 0.0, Sodium Level 141, Potassium Level 3.8, Chloride Level 106, Carbon Dioxide Level 27, Anion Gap 8, Blood Urea Nitrogen 6L, Creatinine 0.71, Estimat Glomerular Filtration Rate > 60, BUN/Creatinine Ratio 8, Glucose Level 80, Calcium Level 8.2L, Corrected Calcium 9.0, Total Bilirubin 0.4, Aspartate Amino Transf (AST/SGOT) 18, Alanine Aminotra nsferase (ALT/SGPT) 11, Alkaline Phosphatase 59, Total Protein 5.1L, Albumin 3.0L Microbiology 10/12/18 MRSA Screen - Final, Complete MRSA not isolated Assessment/Plan Assessment/Plan Assessment/Plan S/P R Hemicolectomy for Cecal Volvulus Plan is increase diet and continue ambulation, switch to oral pain meds. Clinical Quality Measures DVT/VTE Risk/Contraindication: Risk Factor Score Per Nursin RFS Level Per Nursing on Admit: 4+=Very High Other: SEE INTERVENTIONS FOR DETAILS MAYTE LOPEZ DO Oct 14, 2018 14:05
[2018-10-14] MEDS ORDERED: CHOL20003 PO (15:15)
--- NOTE | 2018-10-14 15:16 | NUR ---
PATIENTS HAD A LIST OF MEDICATIONS. I COMPARED THE PRESCRIPTIONS TO THE EXT MED HX.
[2018-10-14 16:00] VITALS: BP 114/59
--- NOTE | 2018-10-14 19:47 | Progress Note (SOAP) ---
Subjective Date Seen by a Provider: Oct 14, 2018 Time Seen by a Provider: 12:30 Subjective/Events-last exam Fwup right hemicolectomy for bowel obstruction with ischemic bowel, hypo thyroidism, anxiety. Is passing flatus. Objective Exam Vital Signs Date Time Temp Pulse Resp B/P (MAP) Pulse Ox O2 Delivery O2 Flow Rate FiO2 10/14/18 16:00 98.4 82 20 114/59 (77) 95 Room Air 10/14/18 12:00 99.0 71 18 125/68 (87) 98 Room Air 10/14/18 08:00 97 Room Air 2.00 10/14/18 08:00 99.6 66 18 140/63 (88) 97 Room Air 10/14/18 04:00 99.2 91 20 116/56 (76) 97 Room Air 10/14/18 00:00 98.2 78 20 122/58 (79) 97 Room Air 10/13/18 20:10 Room Air 10/13/18 20:06 98.0 71 18 117/70 (86) 99 Room Air I & O 10/14/18 07:00 Intake Total 2610 ml Output Total 1850 ml Balance 760 ml Capillary Refill : Less Than 3 SecondsLess Than 3 Seconds General Appearance: Mild Distress Neck: Supple Respiratory: Lungs Clear Cardiovascular: Regular Rate, Rhythm Gastrointestinal: soft, abnormal bowel sounds (hypoactive), tenderness Extremity: Non Tender, No Calf Tenderness, No Pedal Edema Neurologic/Psychiatric: Alert, Oriented x3 Results Lab Laboratory Tests 10/14/18 05:30: White Blood Count 10.8, Red Blood Count 3.68L, Hemoglobin 11.7, Hematocrit 36, Mean Corpuscular Volume 99, Mean Corpuscular Hemoglobin 32, Mean Corpuscular Hemoglobin Concent 32, Red Cell Distribution Width 12.6, Platelet Count 162, Mean Platelet Volume 10.8H, Neutrophils (%) (Auto) 74, Lymphocytes (%) (Auto) 17, Monocytes (%) (Auto) 8, Eosinophils (%) (Auto) 0, Basophils (%) (Auto) 0, Neutrophils # (Auto) 8.0H, Lymphocytes # (Auto) 1.9, Monocytes # (Auto) 0.9, Eosinophils # (Auto) 0.0, Basophils # (Auto) 0.0, Sodium Level 141, Potassium Level 3.8, Chloride Level 106, Carbon Dioxide Level 27, Anion Gap 8, Blood Urea Nitrogen 6L, Creatinine 0.71, Estimat Glomerular Filtration Rate > 60, BUN/Creatinine Ratio 8, Glucose Level 80, Calcium Level 8.2L, Corrected Calcium 9.0, Total Bilirubin 0.4, Aspartate Amino Transf (AST/SGOT) 18, Alanine Aminotransferase (ALT/SGPT) 11, Alkaline Phosphatase 59, Total Protein 5.1L, Albumin 3.0L Microbiology 10/12/18 MRSA Screen - Final, Complete MRSA not isolated Assessment/Plan Assessment/Plan Assess & Plan/Chief Complaint 1. Right Hemicolectomy for Bowel Obstruction with Ischemic Bowel--pain control, increase activity, on clear liquids 2. Hypothyroidism--restart levothyroxine 3. Anxiety--restart paxil Clinical Quality Measures DVT/VTE Risk/Contraindication: Risk Factor Score Per Nursin RFS Level Per Nursing on Admit: 4+=Very High Other: SEE INTERVENTIONS FOR DETAILS ADRIENNE BURGER DO Oct 14, 2018 19:47
[2018-10-14 20:00] VITALS: BP 122/72
[2018-10-14] MEDS ORDERED: PARoxetine 20 MG (PAXIL) TAB PO SCH (21:00)
[2018-10-15 00:40] VITALS: BP 120/56
[2018-10-15] MEDS: LACTATED RINGERS 1,000 ML IV SCH ×3 (02:00→11:59)
[2018-10-15 04:25] VITALS: BP 124/73
[2018-10-15] MEDS ORDERED: LEVOTHYROXINE 50 MCG (LEVOTHROID) TAB PO SCH (06:30)
[2018-10-15 08:00] VITALS: BP 124/71
--- NOTE | 2018-10-15 08:03 | NUR ---
prior to a.m. medications pulse was 74 and b/p was 127/71
[2018-10-15] MEDS: PANTOPRAZOLE 40 MG (PROTONIX) VIAL IV SCH (08:20)
[2018-10-15 11:43] VITALS: BP 128/73
--- NOTE | 2018-10-15 12:11 | Progress Note ---
Subjective Time Seen by a Provider: 11:31 Subjective/Events-last exam Pt seen and examined, doing better today and wants to go home. Review of Systems Pulmonary: No Dyspnea, No Cough Cardiovascular: No: Chest Pain, Palpitations Objective Exam Vital Signs Date Time Temp Pulse Resp B/P (MAP) Pulse Ox O2 Delivery O2 Flow Rate FiO2 10/15/18 11:43 98.9 70 18 128/73 (91) 97 Room Air 10/15/18 08:15 96 Room Air 2.00 10/15/18 08:00 98.1 74 18 124/71 (88) 97 Room Air 10/15/18 04:25 98.1 74 18 124/73 (90) 96 Room Air 10/15/18 00:40 98.9 95 18 120/56 (77) 95 Room Air 10/14/18 20:00 99.0 80 20 122/72 (89) 96 Room Air 10/14/18 20:00 Room Air 10/14/18 16:00 98.4 82 20 114/59 (77) 95 Room Air I & O 10/15/18 07:00 Intake Total 3360 ml Output Total 2275 ml Balance 1085 ml Capillary Refill : Less Than 3 SecondsLess Than 3 Seconds General Appearance: No Apparent Distress HEENT: Moist Mucous Membranes Respiratory: Lungs Clear Cardiovascular: Regular Rate, Rhythm Gastrointestinal: soft, other (incision c/d/i) Results Lab Microbiology 10/12/18 MRSA Screen - Final, Complete MRSA not isolated Assessment/Plan Assessment/Plan Assessment/Plan 1. S/P Right Hemicolectomy for Cecal Volvulus D/C IV D/C HOME Clinical Quality Measures DVT/VTE Risk/Contraindication: Risk Factor Score Per Nursin RFS Level Per Nursing on Admit: 4+=Very High Other: SEE INTERVENTIONS FOR DETAILS MAYTE LOPEZ DO Oct 15, 2018 12:11
[2018-10-15] MEDS ORDERED: ACHD5005 PO (12:13)
--- NOTE | 2018-10-15 12:13 | Discharge Inst-Surgical ---
Discharge Inst-Surgical Depart Medication/Instructions New, Converted or Re-Newed RX: RX Given to Pt/Family Patient Instructions Follow up Appt: Make appointment for 1 week. [phone] Instructions: No lifting greater than 20 pounds. No strenuous activity. May shower in 24 hours, no tub bath or soaking. Use incentive spirometer at home as directed. No Smoking Skin/Wound Care: May remove bandages in am. You need to leave the Dermabond on incision it will fall off on it's own. Symptoms to Report: Appetite Changes, Extremity Discoloration, Numbness/Tingling, Swelling Increased, Bleeding Excessive, Eyesight Changes, Pain Increased, Urine Color Change, Constipation(Persistent), Fever over 101 degree F, Pain/Pressure in chest, Urinating Difficulty, Cough Up/Vomit Blood, Heart Beat Irreg/Pounding, Pain/Pressure in jaw, Cramps in feet or legs, Lightheadedness, Pain/Pressure in shoulder, Diarrhea(Persistent), Memory Changes Suddenly, Questions/Concerns, Weight gain consecutive days, Dizziness/Fainting, Nausea/Vomiting, Shortness of Breath, Weight gain over 2 pounds If questions or concerns contact your physician Or seek help at emergency department. Activity Activity as Tolerated: Yes Activity Instructions: Avoid Stress to Incision Driving Instructions: No Driving/Refer to Dr. Mcclendon Discharge Diet: No Restrictions Diet After 24 Hours: Clear Liquid if Nauseous If Any Problems/Questions/Issu: Contact Your Physician, Go to Emergency Room Skin/Wound Care Infection Signs and Symptoms: Increased Redness, Foul Odor of Wound, Increased Drainage, Skin Itchy or Has a Rash, Increased Swelling, Temperature Above 101 F Bathing Instructions: Shower Stitches/Karla/Dermabond Dis: Care of MAYTE Mcfadden DO Oct 15, 2018 12:13
--- NOTE | 2018-10-15 12:58 | Progress Note (SOAP) ---
Subjective Date Seen by a Provider: Oct 15, 2018 Time Seen by a Provider: 12:58 Subjective/Events-last exam Fwup right hemicolectomy for bowel obstruction with ischemic bowel, hypo thyroidism, anxiety. On soft diet. Passing flatus. Pain is mild. Objective Exam Vital Signs Date Time Temp Pulse Resp B/P (MAP) Pulse Ox O2 Delivery O2 Flow Rate FiO2 10/15/18 11:43 98.9 70 18 128/73 (91) 97 Room Air 10/15/18 08:15 96 Room Air 2.00 10/15/18 08:00 98.1 74 18 124/71 (88) 97 Room Air 10/15/18 04:25 98.1 74 18 124/73 (90) 96 Room Air 10/15/18 00:40 98.9 95 18 120/56 (77) 95 Room Air 10/14/18 20:00 99.0 80 20 122/72 (89) 96 Room Air 10/14/18 20:00 Room Air 10/14/18 16:00 98.4 82 20 114/59 (77) 95 Room Air I & O 10/15/18 07:00 Intake Total 3360 ml Output Total 2275 ml Balance 1085 ml Capillary Refill : Less Than 3 SecondsLess Than 3 Seconds General Appearance: No Apparent Distress Neck: Supple Respiratory: Lungs Clear Cardiovascular: Regular Rate, Rhythm Gastrointestinal: normal bowel sounds, non tender, soft Extremity: Non Tender, No Calf Tenderness, No Pedal Edema Neurologic/Psychiatric: Alert, Oriented x3 Results Lab Microbiology 10/12/18 MRSA Screen - Final, Complete MRSA not isolated Assessment/Plan Assessment/Plan Assess & Plan/Chief Complaint 1. Right Hemicolectomy for Bowel Obstruction with Ischemic Bowel--home per surgery, may resume her normal stool softener 2. Hypothyroidism--cont levothyroxine 3. Anxiety--cont paxil Clinical Quality Measures DVT/VTE Risk/Contraindication: Risk Factor Score Per Nursin RFS Level Per Nursing on Admit: 4+=Very High Other: SEE INTERVENTIONS FOR DETAILS ADRIENNE BURGER DO Oct 15, 2018 12:58
== END 2018-10-15 14:00 | disposition home or self-care (01) | DRG 329 ==
LOC: EDUNIT# 15:25 → ER 15:27 → 4TH 18:30
PROVIDERS: ADMIT Internal Medicine; ATTEND Family Medicine
PROC: 0DTF0ZZ Resection of Right Large Intestine, Open Approach (ICD-10-PCS; principal; 2018-10-12 21:57)
DX: K56.2 Volvulus (principal); K55.059 Acute (reversible) ischemia of intestine, part and extent unspecified; E03.9 Hypothyroidism, unspecified; F41.9 Anxiety disorder, unspecified; Z98.84 Bariatric surgery status
CPT/HCPCS: 36415; 71045; 74177; 80053; 80061; 80320; 83690; 83735; 83874; 83880; 84484; 85007; 85025; 85027; 85610; 85730; 87081; 93005; 93041; 94664; 96374; 96375; 96376

== ENCOUNTER 2019-03-20 10:09 | Outpatient (RCR) | payer OTHER ==
[~2019-03-20 10:09] MED LIST changes: +CHOL20003 PO; +DOCU-143 PO; +LEVO50TA6 PO; +MULT1CAP54 PO; +PARO-49 PO; +VIT1TABL26 PO
[2019-03-20] MEDS ORDERED: ZOLEDRONATE (NON-FORMULARY) 100 ML IV ONE (11:30)
== END 2019-06-18 | disposition home or self-care (01) ==
LOC: ONC 10:09
PROVIDERS: ATTEND Internal Medicine Hematology & Oncology
DX: M81.0 Age-related osteoporosis without current pathological fracture (principal); I10 Essential (primary) hypertension; R00.1 Bradycardia, unspecified; F32.9 Major depressive disorder, single episode, unspecified; E07.9 Disorder of thyroid, unspecified; M51.16 Intervertebral disc disorders with radiculopathy, lumbar region; M48.061 Spinal stenosis, lumbar region without neurogenic claudication; Z79.899 Other long term (current) drug therapy
CPT/HCPCS: 82306; 96365

== ENCOUNTER 2020-04-19 12:58 | Outpatient (RCR) | payer OTHER ==
[~2020-04-19 12:58] MED LIST changes: +ZOLEDRONATE (NON-FORMULARY) 100 ML IV ONE
== END 2020-07-18 | disposition home or self-care (01) ==
LOC: ONC 12:58
PROVIDERS: ATTEND Internal Medicine Hematology & Oncology
DX: M81.0 Age-related osteoporosis without current pathological fracture (principal); I10 Essential (primary) hypertension; F32.9 Major depressive disorder, single episode, unspecified; E07.9 Disorder of thyroid, unspecified; M51.16 Intervertebral disc disorders with radiculopathy, lumbar region; M48.061 Spinal stenosis, lumbar region without neurogenic claudication; Z79.899 Other long term (current) drug therapy
CPT/HCPCS: 96374; G0463

== ENCOUNTER 2021-04-19 13:01 | Outpatient (RCR) | payer OTHER ==
[~2021-04-19 13:01] MED LIST changes: +ZOLEDRONATE (NON-FORMULARY) 100 ML IV SCH
[2021-04-19] MEDS ORDERED: ZOLEDRONATE (NON-FORMULARY) 100 ML IV ONE (15:45)
== END 2021-05-09 | disposition home or self-care (01) ==
LOC: ONC 13:01
PROVIDERS: ATTEND Internal Medicine Hematology & Oncology
DX: Z45.2 Encounter for adjustment and management of vascular access device (principal); M81.0 Age-related osteoporosis without current pathological fracture; I10 Essential (primary) hypertension; E55.9 Vitamin D deficiency, unspecified; K59.00 Constipation, unspecified
CPT/HCPCS: 82306; 96365; G0463; 36415; 99213

== ENCOUNTER → 2022-06-05 | Outpatient (CLI) | payer MEDICARE ==
[~2022-06-05] MED LIST changes: +PARO-124 PO; -PARO-49 PO; -ZOLEDRONATE (NON-FORMULARY) 100 ML IV ONE; -ZOLEDRONATE (NON-FORMULARY) 100 ML IV SCH
== END ==
LOC: CARD 08:38
PROVIDERS: ATTEND Physician Assistant
DX: I10 Essential (primary) hypertension (principal)
CPT/HCPCS: 93306

== ENCOUNTER → 2022-07-05 | Outpatient (CLI) | payer MEDICARE ==
[~2022-07-05] VITALS: Ht 157 cm; Wt 62.0 kg
[~2022-07-05] MED LIST changes: +CATHETER FLUSH 10 ML SYR IVP PRN
[2022-07-05 13:10] VITALS: BP 140/78
--- NOTE | 2022-07-05 15:22 | Cardiology Stress Test Report ---
Stress Test Report Date of Procedure/Referring: Date of Procedure: Jul 05, 2022 PCP Laine Ny DO Admitting Physician Admitting Physician: Attending Physician: Ava Angela Indications: HTN Baseline Heart Rate: 71 Baseline Blood Pressure: Blood Pressure Systolic: 140 Blood Pressure Diastolic: 78 Vital Signs Date Time Temp Pulse Resp B/P (MAP) Pulse Ox O2 Delivery O2 Flow Rate FiO2 07/05/22 13:10 71 140/78 (98) Baseline Vital Signs Vital Signs Date Time Temp Pulse Resp B/P (MAP) Pulse Ox O2 Delivery O2 Flow Rate FiO2 07/05/22 13:10 71 140/78 (98) Baseline EKG: Baseline EKG: NSR Summary: After explaining the procedure and details to the patient, she signed the consent and was brought to the stress nuclear laboratory. Patient exercised on standard Sage protocol, EKG, heart rate and blood pressure were monitored continuously, resting and stress doses of radio tracer were injected, imaging was acquired and reviewed in the short axis, horizontal long axis and vertical long axis views Patient was able to exercise for a total of 7.30 minutes on Sage protocol, METs 9.1 Maximum heart rate 141 Maximum blood pressure 146/81 Stress EKG, Minimal nondiagnostic changes Recovery EKG, Return to baseline TID: 1.09 SSS: 2 SDS: 2 EF: 69 Conclusion: Fair exercise tolerance for 7 minutes and 30 seconds on standard Sage protocol, 9.1 METS achieving 90% of maximal expected heart rate Appropriate heart rate and blood pressure response to exercise return to baseline during recovery Nondiagnostic EKG changes with exercise return to baseline during recovery No significant ischemia or infarction noted on SPECT images Normal left ventricular size, ejection fraction 69% Copy Copies To 1: LAINE NY BASHAR J MD Jul 05, 2022 15:22
== END ==
LOC: CARD 11:36
PROVIDERS: ATTEND Physician Assistant
DX: I10 Essential (primary) hypertension (principal)
CPT/HCPCS: 78452; 93017; A9502